=== PATIENT | male | born 1955 | race Hispanic/Latino ===

== ENCOUNTER 2021-09-04 16:43 | Inpatient (IN) | payer MEDICARE ==
[~2021-09-04] VITALS: Ht 162.6 cm; Wt 103.0 kg
[~2021-09-04 16:43] MED LIST: ALBU4TAB12 PO; CARV3.12 PO; EZET10TA48 PO; FOLI1TAB85 PO; HYDR25TA PO; INSU100I26 SQ; LIOT25TA12 PO; LISI20TA24 PO; NIFE90TA45 PO; ROSU20TA31 PO
[2021-09-04 17:55] VITALS: BP 155/88
[2021-09-04 19:27] VITALS: BP 134/77
[2021-09-04 20:26] LABS: CREATININE 3.8 mg/dL (0.5-1.5); POTASSIUM 3.8 mmol/L (3.5-5.1)
[2021-09-04] MEDS ORDERED: MAG/ALUM/SIMETH 30 ML UDCUP PO PRN (21:30)
[2021-09-04] MEDS ORDERED: ACETAMINOPHEN 325 MG TAB PO PRN ×2 (21:30)
[2021-09-04] MEDS ORDERED: ONDANSETRON 4MG INJ IV PRN (21:30)
[2021-09-04] MEDS ORDERED: NITROGLYCERIN 0.4 MG SL TAB SL PRN (21:30)
[2021-09-04] MEDS ORDERED: LACTULOSE 20 GM/30 ML UDCUP PO PRN (21:30)
[2021-09-04] MEDS ORDERED: GUAIFENESIN-DM 200/20 MG 10 ML PO PRN (21:30)
[2021-09-04] MEDS ORDERED: IPRATROPIUM/ALBUTEROL SULFATE 3 ML SOLUTION IH PRN (21:30)
[2021-09-04 21:53] LABS: HEMATOCRIT 24.8 % (42-54); MEAN CORPUSCULAR HEMOGLOBIN 30.9 pg (27.0-33.0); MEAN CORPUSCULAR HGB CONC 31.9 g/dL (32.0-36.0); MEAN CORPUSCULAR VOLUME 96.9 fL (79-99); NUCLEATED RED BLOOD CELLS 0.5 % (0.0-0.19); RED BLOOD CELL COUNT(AUTO) 2.56 MIL/uL (4.50-6.20); RED CELL DISTRIBUTION WIDTH 14.6 % (11.0-15.5); WHITE BLOOD COUNT (AUTO) 6.4 K/uL (4.8-10.8)
[2021-09-04] MEDS ORDERED: AEC81 PO (21:53)
[2021-09-04] MEDS ORDERED: ATOR40TA71 PO (21:53)
[2021-09-04] MEDS ORDERED: INSLAN SQ (21:54)
[2021-09-04] MEDS ORDERED: CLOP75TA14 PO (21:56)
[2021-09-04] MEDS ORDERED: DOCU100C33 PO (21:58)
[2021-09-04 21:59] LABS: INR 1.26 (0.85-1.15); PROTHROMBIN TIME 13.4 SEC (9.6-11.6)
[2021-09-04 22:00] LABS: PARTIAL THROMBOPLASTIN TIME 35.8 SEC (26.3-35.5)
[2021-09-04] MEDS ORDERED: EPOE10008 IJ (22:00)
[2021-09-04] MEDS ORDERED: PHARMACY COMMUNICATION MISC SCH (22:00)
[2021-09-04] MEDS ORDERED: METO25TA6 PO (22:06)
[2021-09-04] MEDS ORDERED: FOLI0.8T22 PO (22:09)
[2021-09-04] MEDS ORDERED: ACET325T51 PO (22:18)
[2021-09-04] MEDS ORDERED: TRAM50TA2 PO ×2 (22:20→22:22)
[2021-09-04 22:22] LABS: BILIRUBIN,TOTAL 0.5 mg/dL (0.2-1.0); POTASSIUM 3.8 mmol/L (3.5-5.1); TOTAL PROTEIN, SERUM 7.8 g/dL (6.0-8.3)
[2021-09-04] MEDS ORDERED: ACET-3673 PO (22:23)
[2021-09-04] MEDS ORDERED: INSU100V3 IJ (22:25)
[2021-09-04] MEDS ORDERED: ZOSYN 3.375GM+NS 50ML 50 ML IV SCH (22:30)
[2021-09-04] MEDS ORDERED: DEXTROSE 50%-WATER 50 ML DISP.SYRIN IV PRN (23:30)
[2021-09-04] MEDS ORDERED: GLUCAGON 1MG KIT 1 MG ML IM PRN (23:30)
[2021-09-04] MEDS ORDERED: TRAMADOL HCL 50 MG TABLET PO PRN (23:30)
[2021-09-04] MEDS ORDERED: EPOETIN ALFA-EPBX (ESRD) 10,000 UNIT/ML VIAL IJ SCH (23:30)
[2021-09-04] MEDS ORDERED: 0.9%NACL 50ML 50 ML IV ONE (23:32)
[2021-09-05 00:24] VITALS: BP 131/74
[2021-09-05] MEDS: FUROSEMIDE 40MG VIAL IV SCH ×2 (01:33→14:57)
[2021-09-05] MEDS: DEXAMETHASONE SOD PHOSPHATE 4 MG/ML 1ML VIAL IV SCH (01:34)
[2021-09-05 04:00] VITALS: BP 135/80
[2021-09-05 04:10] LABS: BASOPHILS % (AUTO) 0.1 % (0.0-5.0); EOSINOPHILS % (AUTO) 0.4 % (0.0-8.0); HEMATOCRIT 24.1 % (42-54); LYMPHOCYTES % (AUTO) 8.8 % (21.0-51.0); MEAN CORPUSCULAR HEMOGLOBIN 30.4 pg (27.0-33.0); MEAN CORPUSCULAR HGB CONC 31.1 g/dL (32.0-36.0); MEAN CORPUSCULAR VOLUME 97.6 fL (79-99); MONOCYTES % (AUTO) 4.4 % (3.0-13.0); NEUTROPHILS % (AUTO) 84.9 % (40.0-77.0); PLATELET COUNT (AUTO) 244 K/uL (130-400); RED BLOOD CELL COUNT(AUTO) 2.47 MIL/uL (4.50-6.20); RED CELL DISTRIBUTION WIDTH 14.6 % (11.0-15.5)
[2021-09-05 04:22] LABS: CREATININE 4.4 mg/dL (0.5-1.5); POTASSIUM 4.1 mmol/L (3.5-5.1)
[2021-09-05 04:46] LABS: B-TYPE NATRIURETIC PEPTIDE 3030 pg/mL (0-100)
[2021-09-05] MEDS: IPRATROPIUM/ALBUTEROL SULFATE 3 ML SOLUTION IH SCH ×5 (06:48→23:30)
[2021-09-05] MEDS: INSULIN HUMULIN R 100 UNIT/ML 3ML SQ SCH ×4 (07:30→21:00)
[2021-09-05 08:00] VITALS: BP 137/64
[2021-09-05] MEDS: Vitamin B Complex/Vit C/Folic Acid PO SCH (08:37)
[2021-09-05] MEDS: ASPIRIN 81 MG EC TAB PO SCH (08:37)
[2021-09-05] MEDS: CLOPIDOGREL 75MG TAB PO SCH (08:37)
[2021-09-05] MEDS: OSELTAMIVIR PHOSPHATE 75 MG CAP PO SCH (08:37)
[2021-09-05] MEDS: DOCUSATE SODIUM 100 MG CAP PO SCH ×2 (08:37→21:33)
[2021-09-05] MEDS: METOPROLOL TARTRATE 25 MG TAB PO SCH ×2 (08:38→21:33)
[2021-09-05] MEDS: HEPARIN 5,000 UNIT VIAL SQ SCH ×2 (08:48→21:43)
[2021-09-05] MEDS: ZOSYN 3.375GM+NS 50ML 50 ML IV SCH ×2 (08:50→21:33)
[2021-09-05] MEDS: BUDESONIDE 0.5 MG/2 ML INH IH SCH ×2 (10:23→23:31)
[2021-09-05] MEDS ORDERED: IOHEXOL-350 75 ML VIAL IV ONE (10:27)
[2021-09-05] MEDS ORDERED: IOHEXOL-350 50ML VIAL IV ONE (10:43)
[2021-09-05] MEDS ORDERED: VANCOMYCIN 1.5 GM/250 ML BAG 250 ML IV SCH (11:00)
[2021-09-05] MEDS ORDERED: PHARMACY COMMUNICATION MISC SCH ×2 (11:00→12:30)
[2021-09-05 12:00] VITALS: BP 137/72
[2021-09-05 16:00] VITALS: BP 129/70
[2021-09-05 19:27] VITALS: BP 122/75
[2021-09-05] MEDS ORDERED: 0.9%NACL 50ML 50 ML IV ONE (20:53)
[2021-09-05] MEDS: INSULIN GLARGINE 100 UNITS/ML 10 ML VIAL SQ SCH (21:42)
[2021-09-06] VITALS (7 sets, daily range): BP systolic 120–140; BP diastolic 67–86
[2021-09-06] MEDS: FUROSEMIDE 40MG VIAL IV SCH ×2 (01:22→13:16)
[2021-09-06] MEDS: DEXAMETHASONE SOD PHOSPHATE 4 MG/ML 1ML VIAL IV SCH ×2 (01:22→23:08)
[2021-09-06] MEDS: ATORVASTATIN 40 MG TABLET PO SCH ×2 (01:22→20:21)
[2021-09-06 04:15] LABS: HEMATOCRIT 23.4 % (42-54); MEAN CORPUSCULAR HEMOGLOBIN 29.4 pg (27.0-33.0); MEAN CORPUSCULAR HGB CONC 31.2 g/dL (32.0-36.0); MEAN CORPUSCULAR VOLUME 94.4 fL (79-99); NUCLEATED RED BLOOD CELLS 0.2 % (0.0-0.19); RED BLOOD CELL COUNT(AUTO) 2.48 MIL/uL (4.50-6.20); RED CELL DISTRIBUTION WIDTH 14.6 % (11.0-15.5); WHITE BLOOD COUNT (AUTO) 8.1 K/uL (4.8-10.8)
[2021-09-06 04:44] LABS: CREATININE 5.7 mg/dL (0.5-1.5); POTASSIUM 3.8 mmol/L (3.5-5.1)
[2021-09-06] MEDS: BUDESONIDE 0.5 MG/2 ML INH IH SCH ×2 (06:17→21:07)
[2021-09-06] MEDS: IPRATROPIUM/ALBUTEROL SULFATE 3 ML SOLUTION IH SCH ×4 (06:17→23:24)
[2021-09-06] MEDS: INSULIN HUMULIN R 100 UNIT/ML 3ML SQ SCH ×4 (07:15→20:24)
[2021-09-06] MEDS ORDERED: 0.9% NACL 250ML 250 ML IV SCH (08:30)
[2021-09-06] MEDS: CLOPIDOGREL 75MG TAB PO SCH (09:00)
[2021-09-06] MEDS: LIOTHYRONINE SODIUM 25 MCG PO SCH (09:00)
[2021-09-06] MEDS: ZOSYN 3.375GM+NS 50ML 50 ML IV SCH ×2 (09:26→20:23)
[2021-09-06] MEDS: Vitamin B Complex/Vit C/Folic Acid PO SCH (09:27)
[2021-09-06] MEDS: DOCUSATE SODIUM 100 MG CAP PO SCH ×2 (09:27→20:21)
[2021-09-06] MEDS: OSELTAMIVIR PHOSPHATE 75 MG CAP PO SCH (09:27)
[2021-09-06] MEDS: METOPROLOL TARTRATE 25 MG TAB PO SCH ×2 (09:27→20:21)
[2021-09-06] MEDS: ASPIRIN 81 MG EC TAB PO SCH (09:27)
[2021-09-06] MEDS: HEPARIN 5,000 UNIT VIAL SQ SCH ×2 (09:42→20:22)
[2021-09-06] MEDS ORDERED: FUROSEMIDE 40MG VIAL IV SCH (16:00)
[2021-09-06] MEDS: INSULIN GLARGINE 100 UNITS/ML 10 ML VIAL SQ SCH (20:25)
[2021-09-07] VITALS (19 sets, daily range): BP systolic 135–171; BP diastolic 69–96
[2021-09-07] MEDS: TRAMADOL HCL 50 MG TABLET PO PRN ×2 (01:21→02:57)
[2021-09-07 06:11] LABS: HEMATOCRIT 24.7 % (42-54); LYMPHOCYTES % (AUTO) 9.6 % (21.0-51.0); MEAN CORPUSCULAR HEMOGLOBIN 30.2 pg (27.0-33.0); MEAN CORPUSCULAR HGB CONC 30.8 g/dL (32.0-36.0); NEUTROPHILS % (AUTO) 86.5 % (40.0-77.0); NUCLEATED RED BLOOD CELLS 0.3 % (0.0-0.19); PLATELET COUNT (AUTO) 280 K/uL (130-400); RED BLOOD CELL COUNT(AUTO) 2.52 MIL/uL (4.50-6.20); RED CELL DISTRIBUTION WIDTH 15.1 % (11.0-15.5); WHITE BLOOD COUNT (AUTO) 7.4 K/uL (4.8-10.8)
[2021-09-07] MEDS: IPRATROPIUM/ALBUTEROL SULFATE 3 ML SOLUTION IH SCH ×4 (06:41→23:46)
[2021-09-07] MEDS: BUDESONIDE 0.5 MG/2 ML INH IH SCH ×2 (06:41→21:54)
[2021-09-07 06:50] LABS: % IRON SATURATION 63.6 % (30-44)
[2021-09-07] MEDS: INSULIN HUMULIN R 100 UNIT/ML 3ML SQ SCH ×4 (07:05→20:49)
[2021-09-07 07:39] LABS: BILIRUBIN,TOTAL 0.5 mg/dL (0.2-1.0); CREATININE 7.2 mg/dL (0.5-1.5); PHOSPHORUS 5.2 mg/dL (2.5-4.9); POTASSIUM 4.3 mmol/L (3.5-5.1); TOTAL PROTEIN, SERUM 7.1 g/dL (6.0-8.3)
[2021-09-07] MEDS ORDERED: VANCOMYCIN 750MG VIAL IVPB SCH (08:00)
[2021-09-07] MEDS ORDERED: COMPOUND IV MISC 1 EACH IVSOLN MISC PRN (08:00)
[2021-09-07] MEDS ORDERED: COMPOUND PO MISCELLANEOUS 1 EACH MISC MISC PRN (08:30)
[2021-09-07] MEDS: LIOTHYRONINE SODIUM 25 MCG PO SCH (08:37)
[2021-09-07] MEDS ORDERED: Vitamin B Complex/Vit C/Folic Acid PO SCH (09:00)
[2021-09-07] MEDS: CLOPIDOGREL 75MG TAB PO SCH (09:00)
[2021-09-07] MEDS: DOCUSATE SODIUM 100 MG CAP PO SCH ×2 (09:32→20:30)
[2021-09-07] MEDS: Vitamin B Complex/Vit C/Folic Acid PO SCH (09:32)
[2021-09-07] MEDS: ASPIRIN 81 MG EC TAB PO SCH (09:32)
[2021-09-07] MEDS: EPOETIN ALFA-EPBX (ESRD) 10,000 UNIT/ML VIAL SQ SCH (09:32)
[2021-09-07] MEDS: METOPROLOL TARTRATE 25 MG TAB PO SCH ×2 (09:33→20:33)
[2021-09-07] MEDS: OSELTAMIVIR PHOSPHATE 300 MG, WATER FOR INJECTION,STERILE 10 ML, COMPOUNDING VEHICLE SF... PO SCH ×3 (09:33)
[2021-09-07] MEDS: ZOSYN 3.375GM+NS 50ML 50 ML IV SCH ×2 (09:33→20:30)
[2021-09-07] MEDS: HEPARIN 5,000 UNIT VIAL SQ SCH ×2 (09:44→20:32)
[2021-09-07] MEDS ORDERED: 0.9%NACL 1000ML 2,000 ML IV ONE (10:13)
[2021-09-07] MEDS: VANCOMYCIN 500MG+NS 100ML 100 ML IV SCH (14:29)
[2021-09-07 19:30] LABS: HEPATITIS B SURFACE ANTIGEN Non-Reactive (Negative)
[2021-09-07] MEDS: ATORVASTATIN 40 MG TABLET PO SCH (20:30)
[2021-09-07] MEDS: INSULIN GLARGINE 100 UNITS/ML 10 ML VIAL SQ SCH (20:48)
[2021-09-07] MEDS: DEXAMETHASONE SOD PHOSPHATE 4 MG/ML 1ML VIAL IV SCH (23:52)
[2021-09-08] VITALS: BP 128/72
[2021-09-08 04:01] VITALS: BP 150/82
[2021-09-08 04:42] LABS: MEAN CORPUSCULAR HEMOGLOBIN 29.6 pg (27.0-33.0); MEAN CORPUSCULAR HGB CONC 31.3 g/dL (32.0-36.0); MEAN CORPUSCULAR VOLUME 94.9 fL (79-99); NUCLEATED RED BLOOD CELLS 0.3 % (0.0-0.19); RED BLOOD CELL COUNT(AUTO) 2.53 MIL/uL (4.50-6.20); RED CELL DISTRIBUTION WIDTH 15.4 % (11.0-15.5); WHITE BLOOD COUNT (AUTO) 6.7 K/uL (4.8-10.8)
[2021-09-08 04:58] LABS: ALBUMIN 1.9 g/dL (3.5-5.0); BILIRUBIN,TOTAL 0.4 mg/dL (0.2-1.0); CREATININE 5.7 mg/dL (0.5-1.5); POTASSIUM 3.6 mmol/L (3.5-5.1)
[2021-09-08] MEDS: INSULIN HUMULIN R 100 UNIT/ML 3ML SQ SCH ×4 (06:01→20:41)
[2021-09-08] MEDS: IPRATROPIUM/ALBUTEROL SULFATE 3 ML SOLUTION IH SCH ×4 (06:34→23:00)
[2021-09-08] MEDS: BUDESONIDE 0.5 MG/2 ML INH IH SCH ×2 (06:34→21:41)
[2021-09-08 08:38] VITALS: BP 146/78
[2021-09-08] MEDS: CLOPIDOGREL 75MG TAB PO SCH (09:00)
[2021-09-08] MEDS: LIOTHYRONINE SODIUM 25 MCG PO SCH (09:00)
[2021-09-08] MEDS: DOCUSATE SODIUM 100 MG CAP PO SCH ×2 (09:53→20:29)
[2021-09-08] MEDS: ZOSYN 3.375GM+NS 50ML 50 ML IV SCH ×2 (09:53→20:29)
[2021-09-08] MEDS: ASPIRIN 81 MG EC TAB PO SCH (09:54)
[2021-09-08] MEDS: METOPROLOL TARTRATE 25 MG TAB PO SCH ×2 (09:54→20:30)
[2021-09-08] MEDS: Vitamin B Complex/Vit C/Folic Acid PO SCH (09:54)
[2021-09-08] MEDS: OSELTAMIVIR PHOSPHATE 300 MG, WATER FOR INJECTION,STERILE 10 ML, COMPOUNDING VEHICLE SF... PO SCH ×3 (09:55)
[2021-09-08] MEDS: HEPARIN 5,000 UNIT VIAL SQ SCH ×2 (10:05→20:41)
[2021-09-08 12:10] VITALS: BP 146/93
[2021-09-08 16:44] VITALS: BP 147/83
[2021-09-08 19:09] VITALS: BP 134/74
[2021-09-08] MEDS: ATORVASTATIN 40 MG TABLET PO SCH (20:29)
[2021-09-08] MEDS: INSULIN GLARGINE 100 UNITS/ML 10 ML VIAL SQ SCH (20:42)
[2021-09-08] MEDS: DEXAMETHASONE SOD PHOSPHATE 4 MG/ML 1ML VIAL IV SCH (23:07)
[2021-09-09] VITALS (19 sets, daily range): BP systolic 126–179; BP diastolic 68–109
[2021-09-09] MEDS: INSULIN HUMULIN R 100 UNIT/ML 3ML SQ SCH ×2 (06:09→11:30)
[2021-09-09] MEDS: IPRATROPIUM/ALBUTEROL SULFATE 3 ML SOLUTION IH SCH ×3 (06:16→18:06)
[2021-09-09] MEDS: BUDESONIDE 0.5 MG/2 ML INH IH SCH (06:16)
[2021-09-09] MEDS: CLOPIDOGREL 75MG TAB PO SCH (07:19)
[2021-09-09 07:51] LABS: HEMATOCRIT 24.7 % (42-54); MEAN CORPUSCULAR HEMOGLOBIN 30.6 pg (27.0-33.0); MEAN CORPUSCULAR HGB CONC 31.6 g/dL (32.0-36.0); MEAN CORPUSCULAR VOLUME 96.9 fL (79-99); NUCLEATED RED BLOOD CELLS 0.4 % (0.0-0.19); PLATELET COUNT (AUTO) 281 K/uL (130-400); RED BLOOD CELL COUNT(AUTO) 2.55 MIL/uL (4.50-6.20); RED CELL DISTRIBUTION WIDTH 15.6 % (11.0-15.5); WHITE BLOOD COUNT (AUTO) 7.1 K/uL (4.8-10.8)
[2021-09-09 08:04] LABS: CREATININE 7.2 mg/dL (0.5-1.5); MAGNESIUM 1.8 mg/dL (1.80-2.40); PHOSPHORUS 4.8 mg/dL (2.5-4.9); POTASSIUM 3.9 mmol/L (3.5-5.1)
[2021-09-09 08:33] LABS: LYMPHOCYTES % (MANUAL) 9 % (22-44); MONOCYTES % (MANUAL) 2 % (2-9); SEGMENTED NEUTROPHILS % 89 % (40-70)
[2021-09-09 08:34] LABS: MAN.DIFF COMMENT-IMPRESSION MANUAL DIFFERENTIAL; PLATELET MORPHOLOGY COMMENT ADEQUATE
[2021-09-09] MEDS: LIOTHYRONINE SODIUM 25 MCG PO SCH (09:00)
[2021-09-09] MEDS: EPOETIN ALFA-EPBX (ESRD) 10,000 UNIT/ML VIAL SQ SCH (09:41)
[2021-09-09] MEDS: Vitamin B Complex/Vit C/Folic Acid PO SCH (09:41)
[2021-09-09] MEDS: ASPIRIN 81 MG EC TAB PO SCH (09:41)
[2021-09-09] MEDS: DOCUSATE SODIUM 100 MG CAP PO SCH (09:42)
[2021-09-09] MEDS: METOPROLOL TARTRATE 25 MG TAB PO SCH (09:42)
[2021-09-09] MEDS: ZOSYN 3.375GM+NS 50ML 50 ML IV SCH (09:42)
[2021-09-09] MEDS: OSELTAMIVIR PHOSPHATE 300 MG, WATER FOR INJECTION,STERILE 10 ML, COMPOUNDING VEHICLE SF... PO SCH ×3 (09:43)
[2021-09-09] MEDS: HEPARIN 5,000 UNIT VIAL SQ SCH (09:44)
[2021-09-09] MEDS ORDERED: 0.9%NACL 100ML 100 ML ONE (14:43)
[2021-09-09] MEDS: VANCOMYCIN 500MG+NS 100ML 100 ML IV SCH (14:44)
[2021-09-10 05:05] VITALS: BP 159/85
== END 2021-09-09 21:23 | DRG 919 ==
LOC: 2AH 17:46
PROVIDERS: ADMIT Thoracic Surgery (Cardiothoracic Vascular Surgery); ATTEND Thoracic Surgery (Cardiothoracic Vascular Surgery)
PROC: 2W14X6Z Compression of Chest Wall using Pressure Dressing (ICD-10-PCS; principal; 2021-09-05)
DX: T81.31XA Disruption of external operation (surgical) wound, not elsewhere classified, initial encounter (principal); N18.6 End stage renal disease; I50.23 Acute on chronic systolic (congestive) heart failure; I97.611 Postprocedural hemorrhage of a circulatory system organ or structure following cardiac bypass; I13.2 Hypertensive heart and chronic kidney disease with heart failure and with stage 5 chronic kidney disease, or end stage renal disease; Y83.9 Surgical procedure, unspecified as the cause of abnormal reaction of the patient, or of later complication, without mention of misadventure at the time of the procedure; D63.8 Anemia in other chronic diseases classified elsewhere; E03.9 Hypothyroidism, unspecified; E11.22 Type 2 diabetes mellitus with diabetic chronic kidney disease; E78.5 Hyperlipidemia, unspecified; I48.91 Unspecified atrial fibrillation; Z99.2 Dependence on renal dialysis; Z95.1 Presence of aortocoronary bypass graft; Z20.822 Contact with and (suspected) exposure to COVID-19
CPT/HCPCS: 36415; 71045; 71260; 80048; 80053; 80202; 82947; 82948; 83540; 83550; 83735; 83880; 84100; 84145; 84484; 85025; 85027; 85610; 85730; 86704; 86706; 86850; 86900; 86901; 87340; 87635; 90935; 93005; 94640; 94664; 97039; G0378; J1100; J1644; J1815; J1940; J2543; J3370; J7030; Q9967